=== PATIENT | female | born 1995 | race Caucasian/White ===

== ENCOUNTER → 2019-09-25 | Day surgery (SDC) | payer OTHER ==
[~2019-09-25] MED LIST: CHOL3000 PO; LIDOCAINE 1%/EPI 1:100,000 20 ML VIAL. INJ ONE
[2019-09-25 10:49] VITALS: BP 118/73
--- NOTE | 2019-09-25 12:02 | OP ---
DATE OF SURGERY: 09/25/2019 PREOPERATIVE DIAGNOSIS: Subcutaneous nodule, left upper quadrant abdominal wall. POSTOPERATIVE DIAGNOSIS: Subcutaneous nodule, left upper quadrant abdominal wall. PROCEDURE: Excision of subcutaneous nodule, left upper quadrant abdominal wall. SURGEON: Greyson Rubio M.D. ANESTHESIA: Local. DESCRIPTION OF PROCEDURE: The patient was brought to the outpatient procedure room and the left upper quadrant of the abdomen was prepped and draped in usual sterile fashion. The palpable change, which had been marked preprocedure with the patient's assistance, was infiltrated with local anesthetic, incised, and delivered intact. Hemostasis with cautery. Wound closed with a subcuticular 4-0 Monocryl. Steri-Strips and sterile dressing applied. The patient tolerated procedure well and was released in stable condition. Specimen was subcutaneous mass, left upper quadrant of the abdomen 1 x 1 x 0.[address]. GRE[address] RUBIO MD DR: IGNACIO/abel JOB#: [id number] / [id number]
--- NOTE | 2019-09-28 16:06 | PATHOLOGY ---
[facility] Accession Number: [id number] . 01 Material submitted: . abdomen - SUBCUTANEOUS TISSUE LEFT UPPER ABDOMEN. Modifiers: left, upper . 01 Clinical history: . Mass LUQ abdominal wall . 02 Diagnosis: Segment of adipose tissue, left upper quadrant abdominal wall mass excision: - Lipoma with focal features of angiolipoma. (JPM/db; 09/28/2019) LBQ 09/28/2019 1038 Local . 02 Electronically signed: . Elijah Aguero MD, Pathologist NPI- [id number] . 01 Gross description: . The specimen is received in formalin, labeled "Jessica [place], subcutaneous tissue left upper abdomen". Received is a segment of bright yellow lobulated tissue measuring 1.5 x 1.2 x 0.8 cm in greatest dimensions. Sectioning reveals bright yellow, lobulated cut surfaces with no grossly distinct nodules or lesions. The specimen is bisected and entirely submitted in cassette A1. (CAA; 09/25/2019) QA/QA 09/25/2019 1825 Local . 02 Pathologist provided ICD-10: D17.79 . 02 CPT . 088199 Specimen Comment: A courtesy copy of this report has been sent to [phone] Specimen Comment: [id number] Specimen Comment: Report sent to / DR GARCIA Performed at: 01 [facility] [address], [place] [id number] MD Davi Espinoza MD Phone: [phone] Performed at: 02 [facility] [address], [place] [id number] MD Elijah Aguero MD Phone: [phone]
== END ==
LOC: SURG 10:31
PROVIDERS: ATTEND Surgery
DX: R22.2 Localized swelling, mass and lump, trunk (principal); D17.1 Benign lipomatous neoplasm of skin and subcutaneous tissue of trunk
CPT/HCPCS: 22902; J3490; 88304